=== PATIENT | male | born 1930 | race Caucasian/White ===

== ENCOUNTER 2016-12-03 08:08 | Emergency (ER) | payer MEDICARE, OTHER ==
[~2016-12-03] VITALS: Ht 190.5 cm; Wt 90.0 kg
[~2016-12-03 08:08] MED LIST: ASPI81TA11 OR; CALA180T PO; FISHOIL XX; LISI-591 PO; PRIL40CA PO; TEMA15 PO; ZOCO40TA PO
[2016-12-03 08:09] VITALS: BP 178/81; PULSE 88; RESP 17; TEMP 98.4; O2SAT 98
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
[2016-12-03] MEDS ORDERED: SIMV20TA PO (08:43)
[2016-12-03] MEDS ORDERED: VERA180C PO (08:43)
[2016-12-03] MEDS ORDERED: FISH1000 PO (08:43)
[2016-12-03] MEDS ORDERED: ASPI81TA81 PO (08:43)
[2016-12-03] MEDS ORDERED: LISI-591 PO (08:43)
[2016-12-03] MEDS ORDERED: TEMA7.5C9 PO (08:43)
[2016-12-03] MEDS ORDERED: OMEP40CA2 PO (08:43)
[2016-12-03] MEDS ORDERED: SODIUM CHLORIDE 0.9% FLUSH 10 ML FLUSH IVF PRN (09:00)
--- NOTE | 2016-12-03 09:09 | RADRPT ---
EXAM DATE/TIME: 12/03/2016 08:48 [facility] COMPARISON: No previous studies available for comparison. INDICATIONS : Shortness of breath and congestion. MEDICAL HISTORY : Hypertension. Brain bleed. SURGICAL HISTORY : None. ENCOUNTER: Initial ACUITY: 2 days PAIN SCORE: 0/10 LOCATION: Bilateral chest FINDINGS: A single view of the chest demonstrates the lungs to be symmetrically aerated without evidence of mas s, infiltrate or effusion. The cardiomediastinal contours are unremarkable. Osseous structures are intact. CONCLUSION: No acute disease. Marcello Coto MD FACR on December 03, 2016 at 9:06 Board Certified Radiologist. This report was verified electronically.
[2016-12-03 09:51] LABS: AUTOMATED NEUTROPHIL # 3.3 TH/MM3 (1.8-7.7); BASOPHIL % 0.3 % (0.0-2.0); EOSINOPHIL # 0.2 TH/MM3 (0-0.4); EOSINOPHIL % 3.5 % (0.0-4.0); HEMATOCRIT 40.9 % (39.0-51.0); HEMO FLAGS DIFF FINAL; LYMPHOCYTE # 1.2 TH/MM3 (1.0-4.8); MEAN CELL VOLUME 86.1 FL (80.0-100.0); MEAN CORPUSCULAR HEMOGLOBIN 29.7 PG (27.0-34.0); MEAN CORPUSCULAR HGB CONC 34.5 % (32.0-36.0); MONO % 8.2 % (0.0-8.0); PLATELET COUNT 212 TH/MM3 (150-450); RED BLOOD COUNT 4.75 MIL/MM3 (4.50-5.90); RED CELL DISTRIBUTION WIDTH 13.6 % (11.6-17.2); WHITE BLOOD COUNT 5.1 TH/MM3 (4.0-11.0)
[2016-12-03 10:04] LABS: ANION GAP 6 MEQ/L (5-15); BICARBONATE 25.8 MEQ/L (21.0-32.0); BLOOD UREA NITROGEN 17 MG/DL (7-18); CHLORIDE 107 MEQ/L (98-107); GLOMERULAR FILTRATION RATE 73 ML/MIN (>89); SODIUM (NA) 139 MEQ/L (136-145)
[2016-12-03] MEDS ORDERED: IOHEXOL 350 MG/ML 10 ML VIAL (for RAD DIAG) IV ONE (11:11)
--- NOTE | 2016-12-03 11:38 | RADRPT ---
EXAM DATE/TIME: 12/03/2016 11:07 [facility] COMPARISON: No previous studies available for comparison. INDICATIONS : Chest pain. IV CONTRAST: 80 cc Omnipaque 350 (iohexol) IV RADIATION DOSE: 15.51 CTDIvol (mGy) MEDICAL HISTORY : Hypertension. SURGICAL HISTORY : None. ENCOUNTER: Initial ACUITY: 1 day PAIN SCALE: 4/10 LOCATION: Bilateral chest TECHNIQUE: Volumetric scanning of the chest was performed using a pulmonary embolism protocol MIP images were re constructed. Using automated exposure control and adjustment of the mA and/or kV according to patien t size, radiation dose was kept as low as reasonably achievable to obtain optimal diagnostic quality images. DICOM format image data is available electronically for review and comparison. FINDINGS: PULMONARY ARTERIES: No filling defects are seen in the pulmonary arteries through the segmental level. LUNGS: There is a 1.6 cm nodular density in the posterior right upper lung. Otherwise, the lungs are clear. No acute pulmonary infiltrates are demonstrated. PLEURAE: There is no pleural thickening or pleural effusion. MEDIASTINUM: There is good visualization of the great vessels of the middle mediastinum. No evidence of mediastin al or hilar adenopathy/mass. MUSCULOSKELETAL: Within normal limits for patient age. MISCELLANEOUS: The visualized upper abdominal organs demonstrate no acute abnormality. There is a 2.6 cm left renal cyst. There are gallstones in the gallbladder. CONCLUSION: 1. No evidence of pulmonary embolism. 2. Nonspecific 1.6 cm nodular density in the posterior right upper lung. Recommend a PET CT to evalua te for focal hypermetabolic activity. This can be done an a nonemergent outpatient basis. Rosendo Dillard MD on December 03, 2016 at 11:32 Board Certified Radiologist. This report was verified electronically.
[2016-12-03] MEDS ORDERED: AUGM500T7 PO (11:44)
--- NOTE | 2016-12-03 14:33 | EKG ---
Date Performed: 12/03/2016 Time Performed: 09:04:04 PTAGE: 86 years EKG: SINUS BRADYCARDIA RIGHT BUNDLE BRANCH BLOCK Since previous tracing, no significant change n oted ABNORMAL ECG PREVIOUS TRACING : 06/03/2012 11.23 DOCTOR: Ankur Kruse Interpretating Date/Time 12/03/2016 14:31:50
== END 2016-12-03 12:17 | disposition home or self-care (01) ==
LOC: NEPC 08:08
DX: R05 Cough (principal); J01.90 Acute sinusitis, unspecified; R06.00 Dyspnea, unspecified; I10 Essential (primary) hypertension; R94.31 Abnormal electrocardiogram [ECG] [EKG]; E78.5 Hyperlipidemia, unspecified
CPT/HCPCS: 71010; 71275; 80048; 83880; 84484; 85025; 93005; 99285; Q9967

== ENCOUNTER 2017-10-21 11:43 | Emergency (ER) | payer OTHER, MEDICARE ==
[~2017-10-21] VITALS: Ht 193 cm; Wt 90.0 kg
[~2017-10-21 11:43] MED LIST changes: -ASPI81TA11 OR; +ASPI81TA81 PO; +AUGM500T7 PO; -CALA180T PO; +FISH1000 PO; -FISHOIL XX; +OMEP40CA2 PO; -PRIL40CA PO; +SIMV20TA PO; -TEMA15 PO; +TEMA7.5C9 PO; +VERA180C PO; -ZOCO40TA PO
[2017-10-21 12:24] VITALS: BP 147/70; PULSE 69; RESP 20; TEMP 98.2; O2SAT 97
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
== END 2017-10-21 15:28 | disposition home or self-care (01) ==
LOC: NEPD 11:43
DX: S16.1XXA Strain of muscle, fascia and tendon at neck level, initial encounter (principal); V43.52XA Car driver injured in collision with other type car in traffic accident, initial encounter
CPT/HCPCS: 70450; 72125